=== PATIENT | female | born 1960 | race Caucasian/White ===

== ENCOUNTER 2017-07-19 16:17 | Emergency (ER) | payer BC ==
[2017-07-19] MEDS ORDERED: SODIUM CHLORIDE 0.9% (FLUSH) 10 ML SYG IV PRN (17:09)
[2017-07-19] MEDS: KETOROLAC TROMETHAMINE INJ 60 MG/2 ML VIAL IM ONE (17:10)
--- NOTE | 2017-07-19 17:17 | ED.PDOC ---
History of Present Illness - General Chief Complaint: Neck Injury/Pain Stated Complaint: neck pain Time Seen by Provider: 07/19/17 16:58 Source: patient Exam Limitations: no limitations - History of Present Illness Initial Comments: PT PRESENTS TO THE ED WITH COMPLAINT OF NECK PAIN WITH RADIATION TO THE HEAD FOR THE PAST 3 DAYS. PT REPORTS BEING SEEN AT URGENT CARE 2 DAYS AGO AND RECIEVING IM NSAID, MUSCLE RELAXANT, AND STEROID. PT REPORTS SOME RELIEF AT THAT TIME BUT STATES THAT PAIN MEDS AT HOME HAVE NOT BEEN RELIEVING THE PAIN. PT REPORTS A REMOTE FALL FROM STANDING APPROXIMATELY 1.5 WEEKS AGO IN WHICH PATIENT DENIES HEAD OR NECK INJURY AT THE TIME. PT REPORTS THAT SHE AWOKE ONE MORNING WITH TODAYS PAIN. Severity: severe Improving Factors: immobilization, rest Worsening Factors: movement Associated Symptoms: headaches, nausea/vomiting Allergies/Adverse Reactions: Allergies Minocycline Allergy (Verified 07/19/17 16:22) Review of Systems - Review of Systems Constitutional: Denies: chills EENTM: Denies: ear pain, throat pain Respiratory: Denies: cough, short of breath Cardiology: Denies: chest pain, palpitations Gastrointestinal/Abdominal: States: see HPI, nausea, vomiting Genitourinary: Denies: dysuria, frequency Musculoskeletal: States: see HPI, neck pain. Denies: back pain Skin: Denies: change in color, dryness Neurological: States: headache. Denies: numbness, paresthesia Endocrine: States: no symptoms reported Hematologic/Lymphatic: States: no symptoms reported Past Medical History (General) - Patient Medical History Hx Stroke: No Hx Dementia: No Hx Asthma: No Hx Cardiac Disorders: No Hx Pacemaker: No Hx Thyroid Disease: No Hx Diabetes: No Surgical History: no surgical history Family Medical History - Family History Mother Family History: No Known Physical Exam - Physical Exam General Appearance: Alert, Comfortable, No apparent distress, Well Developed, Well Groomed, Well Hydrated Eye Exam: bilateral normal Ears, Nose, Throat: hearing grossly normal, normal ENT inspection Neck: full range of motion, supple, tender lateral Respiratory: lungs clear, normal breath sounds, no respiratory distress Cardiovascular/Chest: regular rate, rhythm, no murmur Gastrointestinal/Abdominal: non tender, soft Extremity: normal range of motion, normal inspection Neurologic: alert, normal mood/affect, oriented x 3 Skin Exam: normal color, warm/dry Progress - Progress Progress: 07/19/17 18:40 PT RESTING COMFORTABLY ON RE-EVAL. CT FINDINGS DISCUSSED. PT AGREES WITH PLAN TO TRANSFER FOR NEUROSURGICAL CONSULTATION. - EKG/XRAY/CT CT: CTA HEAD/NECK: EVIDENCE OF EXTRA AXIAL HEMMORHAGE CT Ordered: Yes Departure - Departure Clinical Impression: Intracranial hemorrhage Time of Disposition: 18:42 Disposition: Transfer to Hospital Condition: Fair Departure Forms: ED Discharge - Pt. 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
[2017-07-19] MEDS: PROMETHAZINE HCL INJ 25 MG/ML VIAL IM ONE (17:37)
[2017-07-19 18:10] VITALS: O2SAT 97
--- NOTE | 2017-07-19 18:21 | CT ---
EXAM DESCRIPTION: CTA Head CLINICAL HISTORY: headache, neck pain COMPARISON: None Available TECHNIQUE: Contiguous axial CT images of the head were obtained. Images were obtained prior to and following intravenous contrast administration. Coronal and sagittal reconstructions were then created along with MIPs through the vessels of [place]. This exam was performed according to our departmental dose-optimization program, which includes automated exposure control, adjustment of the mA and/or kV according to patient size and/or use of iterative reconstruction technique. NASCET criteria utilized for the evaluation of any stenotic lesions. FINDINGS: There are bilateral subdural fluid collections displacing brain parenchyma away from the falx cerebri and away from the inner table of the calvarium bilaterally. Asymmetry of the lateral ventricles could be chronic or could reflect mild effacement of the left lateral ventricle. There is mild rightward shift of midline structures. Density of extra-axial fluid collections is greater than that of simple CSF, suggesting proteinaceous fluid/hemorrhagic component. There is no other evidence of acute mass, mass effect, midline shift or hemorrhage. The ventricles and extra-axial CSF spaces are unremarkable. The brain parenchyma appears normal for the patient's age. No acute abnormalities of the bones is seen. There is no spondylolisthesis. No prevertebral soft tissue swelling. No fracture is seen. There is no evidence of flow-limiting stenosis, vascular malformation, or aneurysm in the vessels of the [place]. IMPRESSION: Extra-axial fluid collections are mildly increased in attenuation relative to CSF in the ventricles. This suggests proteinaceous fluid/hemorrhagic products in the extra-axial fluid. No layering blood products are seen. No acute vascular abnormality. Electronically signed by: Severino Gillette 07/19/2017 6:20 PM [facility]
--- NOTE | 2017-07-19 18:24 | CT ---
EXAM DESCRIPTION: CTA Neck CLINICAL HISTORY: neck pain COMPARISON: None Available TECHNIQUE: Contiguous axial CT images of the neck were obtained. Images were obtained prior to and following intravenous contrast administration. Coronal and sagittal reconstructions were then created along with MIPs through the vessels of the [place] and the neck. This exam was performed according to our departmental dose-optimization program, which includes automated exposure control, adjustment of the mA and/or kV according to patient size and/or use of iterative reconstruction technique. NASCET criteria utilized for the evaluation of any stenotic lesions. FINDINGS: There is no evidence of flow-limiting stenosis, vascular malformation, or aneurysm in the vessels of the [place] or neck. IMPRESSION: No significant vascular abnormality in the vessels of the [place] or neck. Electronically signed by: Severino Gillette 07/19/2017 6:23 PM [employer]
[2017-07-19 18:59] VITALS: BP 145/92; TEMP 97.5
== END 2017-07-19 19:13 | disposition short-term general hospital (02) ==
LOC: ER 16:17
DX: I62.9 Nontraumatic intracranial hemorrhage, unspecified (principal)
CPT/HCPCS: 70496; 70498; 80053; 82550; 82553; 84484; 85025; 85610; 85730; J1885

== ENCOUNTER 2018-08-30 13:50 | Emergency (ER) | payer BC ==
[2018-08-30 14:00] VITALS: TEMP 96.6
--- NOTE | 2018-08-30 14:32 | CT ---
EXAM DESCRIPTION: Head CLINICAL HISTORY: Rule out stroke COMPARISON: Previous CTA CT head July 19, 2017 TECHNIQUE: Noncontrast head CT was performed with routine protocol. FINDINGS: Normal rea-white matter differentiation. Ventricles and sulci are normal for age. Mild ventricular asymmetry unchanged from previous study. Previous study showed bilateral subdural effusions or chronic subdural hematomas. These have resolved. Mild prominence of subarachnoid spaces over the convexities consistent with age-related cerebral volume loss. No high density hemorrhage, focal edema or shift of the midline. No sulcal effacement. Normal orbital contents. Basilar cisterns appear clear. Intact calvarium with no fracture or lytic lesion. Normal aeration of tympanic cavities and mastoid air cells. No fluid levels in the paranasal sinuses. Skull base appears intact. Symmetrical internal auditory canals. IMPRESSION: No acute intracranial pathologic process. This exam was performed according to our departmental dose-optimization program, which includes automated exposure control, adjustment of the mA and/or kV according to patient size and/or use of iterative reconstruction technique. Total DLP equals 859.97 mGycm. Electronically signed by: Malcom Godfrey MD 08/30/2018 2:29 PM CDT
[2018-08-30] MEDS ORDERED: ACETAMINOPHEN 325 MG TAB PO ONE (14:41)
[2018-08-30] MEDS ORDERED: PROMETHAZINE HCL 25 MG TAB PO ONE (14:41)
--- NOTE | 2018-08-30 14:44 | ED.PDOC ---
History of Present Illness - General Chief Complaint: Headache Stated Complaint: Headache Time Seen by Provider: 08/30/18 14:02 Source: patient Exam Limitations: no limitations - History of Present Illness Initial Comments: Patient presents with the sudden onset of a headache just CAB[employer]ENT. The headache is occipital, non-radiating, constant, and feels like "my head is going to expl ode". The patient had a similar headache on year ago that was diagnosed as a SAH. She did not get surgery at that time. She also is having mild nausea. No other symptoms. No exacerbating nor alleviating factors. She does not take anticoagulants at this time. No recent trauma. Timing/Duration: 1/2 hour Severity: moderate Improving Factors: nothing Worsening Factors: nothing Associated Symptoms: other - as in HPI Allergies/Adverse Reactions: Allergies Minocycline Allergy (Verified 07/19/17 16:22) Home Medications: Ambulatory Orders Promethazine Tab [Phenergan Tablet] 25 mg PO .Q4H PRN #10 tab 08/30/18 Review of Systems - Review of Systems Constitutional: States: no symptoms reported EENTM: States: no symptoms reported Respiratory: States: no symptoms reported Cardiology: States: no symptoms reported Gastrointestinal/Abdominal: States: no symptoms reported Genitourinary: States: no symptoms reported Musculoskeletal: States: no symptoms reported Skin: States: no symptoms reported Neurological: States: see HPI Endocrine: States: no symptoms reported Hematologic/Lymphatic: States: no symptoms reported Past Medical History (General) - Patient Medical History Hx Stroke: No Hx Dementia: No Hx Asthma: No Hx Cardiac Disorders: No Hx Pacemaker: No Hx Thyroid Disease: No Hx Diabetes: No - Vaccination History Hx Influenza Vaccination: Yes - Social History Hx Tobacco Use: No Family Medical History - Family History Mother Family History: No Known Physical Exam - Physical Exam General Appearance: Obvious distress - Moderate distress Eye Exam: bilateral normal Ears, Nose, Throat: normal ENT inspection Neck: non-tender, full range of motion, supple Respiratory: lungs clear, normal breath sounds Cardiovascular/Chest: normal peripheral pulses, regular rate, rhythm Gastrointestinal/Abdominal: normal bowel sounds, non tender, soft Back Exam: normal inspection, no CVA tenderness Extremity: normal range of motion, non-tender, normal inspection Neurologic: manager private II-XII nml as tested, no motor/sensory deficits, alert, normal mood/affect, oriented x 3 Skin Exam: normal color Lymphatic: no adenopathy Progress - Progress Progress: 08/30/18 15:41 CT head negative. tylenol 650 mg po and phenergan 25 mg po x one significantly reduced the headache. Care instructions given. E.R. warnings given. Questions were elicited and answered. Patient voiced understanding and agreement with the plan. - EKG/XRAY/CT CT Ordered: Yes Departure - Departure Clinical Impression: Headache Disposition: Discharge to Home or Self Care Condition: Good Departure Forms: ED Discharge - Pt. Copy, Patient Portal Self Enrollment Instructions: DI for Headache Diet: resume usual diet Activity: increase activity as tolerated Referrals: Mehrdad Monreal MD [Primary Care Provider] - 1-2 Weeks Prescriptions: Promethazine Tab [Phenergan Tablet] 25 mg PO .Q4H PRN #10 tab PRN Reason: Nausea Home Medications: Ambulatory Orders Promethazine Tab [Phenergan Tablet] 25 mg PO .Q4H PRN #10 tab 08/30/18 Additional Instructions: Return to the E.R. for increasing pain, temperature of 100.4 or above, or weakness or numbness in the extremities. Follow up with your regular doctor for further evaluation.
[2018-08-30 16:01] VITALS: BP 127/92; O2SAT 96
== END 2018-08-30 15:52 | disposition home or self-care (01) ==
LOC: ER 13:50
DX: R51 Headache (principal); R11.0 Nausea; Z88.8 Allergy status to other drugs, medicaments and biological substances
CPT/HCPCS: 70450; Q0169